=== PATIENT | female | born 1990 | race Two or more races ===

== ENCOUNTER 2020-12-31 16:56 | Emergency (ER) | payer OTHER ==
[~2020-12-31] VITALS: Ht 167.6 cm; Wt 65.0 kg
[2020-12-31 16:58] VITALS: BP 128/88
[2020-12-31] MEDS ORDERED: ONDA4TAB5 MT (19:32)
[2020-12-31] MEDS ORDERED: ONDANSETRON 4MG ODT PO ONE (19:45)
== END 2020-12-31 19:40 | disposition home or self-care (01) ==
LOC: ER 16:56
DX: R11.2 Nausea with vomiting, unspecified (principal); A05.9 Bacterial foodborne intoxication, unspecified; R19.7 Diarrhea, unspecified; Z88.0 Allergy status to penicillin
CPT/HCPCS: 99283; Q0162